=== PATIENT | female | born 1975 | race Two or more races ===

== ENCOUNTER 2020-10-09 05:18 | Emergency (ER) | payer MEDICAID ==
[~2020-10-09] VITALS: Ht 167.6 cm; Wt 71.0 kg
[2020-10-09 05:24] VITALS: BP 158/80
--- NOTE | 2020-10-09 05:35 | NUR ---
PT AMBULATED TO ROOM, C/O PAIN TO RIGHT KNEE. HAS BEEN ONGOING, BUT GOT WORST IN THE LAST WEEK AND COULDN'T TAKE NO MORE OF THE PAIN. PT IN GOOD SPIRITS, CALM AND COOPERATIVE.
--- NOTE | 2020-10-09 05:55 | NUR ---
TO BEDSIDE AND EVALED PT.
--- NOTE | 2020-10-09 06:02 | NUR ---
F/U AND D/C INSTRUCTIONS GIVEN TO PT AND SHE V/U. FOLLOW UP WITH ORTHOPEDIC CARE OR SPORTS MEDICINE RECOMMENDED AND IN INSTRUCTIONS PER MD.
== END 2020-10-09 06:04 | disposition home or self-care (01) ==
LOC: ED 05:30
DX: M25.561 Pain in right knee (principal)
CPT/HCPCS: 99281